=== PATIENT | male | born 2000 | race African-American/Black ===

== ENCOUNTER 2025-10-18 13:03 | Inpatient (IN) | payer MEDICAID ==
[~2025-10-18] VITALS: Ht 190.5 cm; Wt 74.4 kg
[2025-10-18 13:10] VITALS: O2SAT 98
[2025-10-18] MEDS: SODIUM CHLORIDE 0.9% 1,000 ML IV ONE (14:01)
[2025-10-18] MEDS: LEVETIRACETAM 1000MG PREMIX 100 ML IV ONE (14:02)
[2025-10-18 14:34] LABS: BASOPHILS % 0.9 % (0.0-2.0); EOSINOPHILS % 0.1 % (0.0-5.0); HEMATOCRIT. 42.8 % (42.0-52.0); HEMOGLOBIN. 14.5 g/dL (14.0-18.0); LYMPHOCYTES % 14.6 % (20.0-50.0); MEAN PLATELET VOLUME 9.3 fl (7.4-10.4); MONOCYTES % 9.9 % (2.0-8.0); NEUTROPHILS % 74.5 % (40.0-76.0); PLATELET 223 x1000/uL (130-400); RED BLOOD CELL COUNT 4.50 mill/uL (4.7-6.1); RED CELL DISTRIBUTION WIDTH 13.6 % (11.6-14.6)
[2025-10-18 14:44] LABS: CREATININE 1.2 mg/dL (0.6-1.3); UREA NITROGEN BLOOD 11 mg/dL (9-23)
[2025-10-18 14:45] LABS: ETHANOL BLOOD < 10 mg/dL (<10); PROTEIN TOTAL 7.9 g/dL (6.0-8.3); TROPONIN I HIGH SENSITIVITY 5 ng/L (3.0-53)
[2025-10-18 14:46] LABS: ASPARTATE AMINOTRANSFERASE 46 IU/L (<34); BILIRUBIN DIRECT 0.3 mg/dL (<=3.0)
[2025-10-18 14:47] LABS: BILIRUBIN TOTAL 1.2 mg/dL (0.1-1.0)
[2025-10-18] MEDS ORDERED: IPRATROPIUM/ALBUTEROL 0.5-3(2.5)MG/3ML NEB HHN PRN (15:45)
[2025-10-18] MEDS ORDERED: CLONIDINE 0.1MG TABLET PO PRN (15:45)
[2025-10-18] MEDS ORDERED: DOCUSATE SODIUM 100MG CAPSULE PO PRN (15:45)
[2025-10-18] MEDS ORDERED: ACETAMINOPHEN 325MG TABLET PO PRN (15:45)
[2025-10-18] MEDS ORDERED: ONDANSETRON HCL 4MG/2ML INJ IV PRN (15:45)
[2025-10-18] MEDS ORDERED: LORAZEPAM 2MG/ML UD SYRINGE IV PRN (16:00)
[2025-10-18 18:16] VITALS: BP 108/78; PULSE 86; RESP 18; TEMP 37.1; O2SAT 96
[2025-10-18] MEDS: ACETAMINOPHEN 325MG TABLET PO PRN (18:36)
[2025-10-18 18:54] VITALS: BP 108/78; PULSE 86; RESP 18; TEMP 37.1408
[2025-10-18 20:00] VITALS: BP 109/70; PULSE 109; RESP 18; TEMP 36.4; O2SAT 96
[2025-10-18 20:12] LABS: CLARITY URINE CLEAR (CLEAR); GLUCOSE URINE NEGATIVE (NEGATIVE); KETONES URINE 2+ (NEGATIVE); LEUKOCYTE ESTERASE URINE 1+ (NEGATIVE); NITRITE URINE NEGATIVE (NEGATIVE); OCCULT BLOOD URINE NEGATIVE (NEGATIVE); PH URINE 5.5 (4.5-8.0); PROTEIN URINE NEGATIVE (NEGATIVE); SPECIFIC GRAVITY URINE 1.017 (1.005-1.030); UROBILINOGEN URINE 0.2 E.U./dL (0.2-1.0)
[2025-10-18 20:18] LABS: *AMPHETAMINES SCREEN URINE NEGATIVE (NEGATIVE); *BENZODIAZEPINES SCREEN URINE NEGATIVE (NEGATIVE)
[2025-10-18 20:19] LABS: *BARBITURATES SCREEN URINE NEGATIVE (NEGATIVE); *COCAINE SCREEN URINE PRESUMPTIVE POSITIVE (NEGATIVE); CANNABINOID URINE SCREEN PRESUMPTIVE POSITIVE (NEGATIVE); ECSTASY MDMA SCREEN URINE NEGATIVE (NEGATIVE); METHADONE URINE SCREEN NEGATIVE (NEGATIVE); OPIATES URINE SCREEN NEGATIVE (NEGATIVE); PHENCYCLIDINE URINE SCREEN NEGATIVE (NEGATIVE)
[2025-10-18 20:26] LABS: COLOR URINE STRAW (YELLOW)
[2025-10-18 20:30] LABS: RBC URINE NONE SEEN /hpf (0-2)
[2025-10-18 20:31] LABS: BACTERIA URINE NONE SEEN; SQUAMOUS EPITHELIAL CELL URINE FEW /lpf (RARE/1+)
[2025-10-18] MEDS: ACETAMINOPHEN 1000MG/100ML 100 ML IV NR (20:59)
[2025-10-18] MEDS: LEVETIRACETAM 500MG PREMIX 100 ML IV SCH (21:35)
[2025-10-19] VITALS: BP 116/68; PULSE 73; RESP 18; TEMP 36.8; O2SAT 97
[2025-10-19] MEDS: MELATONIN 3MG TABLET PO PRN (03:04)
[2025-10-19] MEDS: METOCLOPRAMIDE HCL 10MG/2ML VIAL IV NR (05:24)
[2025-10-19] MEDS: KETOROLAC 30MG/ML VIAL IV NR (05:39)
[2025-10-19 08:00] VITALS: BP 108/49; PULSE 61; RESP 16; TEMP 36.4; O2SAT 98
[2025-10-19] MEDS: PANTOPRAZOLE SODIUM 40 MG/VIAL IV SCH (10:34)
[2025-10-19] MEDS: SODIUM CHLORIDE 0.9% 1,000 ML IV ONE (10:38)
[2025-10-19 12:00] VITALS: BP 96/66; PULSE 72; RESP 16; TEMP 36.8; O2SAT 97
[2025-10-19 16:00] VITALS: BP 102/61; PULSE 66; RESP 16; TEMP 37.6; O2SAT 97
[2025-10-19] MEDS ORDERED: KEPP500 MT ×2 (16:15→16:31)
[2025-10-19 16:31] LABS: BASOPHILS % 0.6 % (0.0-2.0); EOSINOPHILS % 0.4 % (0.0-5.0); HEMATOCRIT. 43.3 % (42.0-52.0); HEMOGLOBIN. 14.7 g/dL (14.0-18.0); LYMPHOCYTES % 23.1 % (20.0-50.0); MEAN PLATELET VOLUME 9.4 fl (7.4-10.4); MONOCYTES % 13.5 % (2.0-8.0); NEUTROPHILS % 62.4 % (40.0-76.0); PLATELET 210 x1000/uL (130-400); RED BLOOD CELL COUNT 4.52 mill/uL (4.7-6.1); RED CELL DISTRIBUTION WIDTH 13.8 % (11.6-14.6)
[2025-10-19 16:47] LABS: CREATININE 1.0 mg/dL (0.6-1.3)
[2025-10-19 16:48] LABS: TRIGLYCERIDE 112 mg/dL (0-150); UREA NITROGEN BLOOD 8 mg/dL (9-23)
[2025-10-19 16:49] LABS: LDL CHOLESTEROL 80 mg/dL (5-100)
[2025-10-19 17:54] VITALS: BP 102/61; PULSE 66; RESP 16; TEMP 99.6
== END 2025-10-19 18:39 | disposition home or self-care (01) | DRG 53 ==
LOC: ER 13:03 → 5WST 13:50 → EDBEDREQ 15:13 → EDBEDREQTM 15:13 → 5WST 19:54
PROVIDERS: ADMIT Internal Medicine; ATTEND Internal Medicine
DX: G40.909 Epilepsy, unspecified, not intractable, without status epilepticus (principal); Z59.00 Homelessness unspecified; F17.210 Nicotine dependence, cigarettes, uncomplicated; F10.90 Alcohol use, unspecified, uncomplicated; Y90.0 Blood alcohol level of less than 20 mg/100 ml; F12.90 Cannabis use, unspecified, uncomplicated; Z91.148 Patient's other noncompliance with medication regimen for other reason; Z79.899 Other long term (current) drug therapy
CPT/HCPCS: 36415; 71045; 80048; 80061; 80076; 80305; 80320; 81003; 82542; 82550; 83735; 83880; 84484; 85025; 93005; 99285; A4606; J1885; J1953; J2405; J2470; J2765; J7030; G0480; J0131